=== PATIENT | female | born 1930 | race American Indian/Alaskan Native ===

== ENCOUNTER 2017-01-07 13:19 | Inpatient (IN) | payer MEDICARE ==
--- NOTE | 2017-01-07 14:09 | Emergency Department Report ---
HPI - General Chief Complaint: Seizure Time Seen by Provider: 01/07/17 14:03 - HPI HPI: This is an 86-year-old Afro-[place]uvian female presents to the emergency department by EMS after the patient had 2 different seizures. The patient's car had broken down and bystanders were helping to push the car out of the way when she had a seizure witnessed by these bystanders. EMS was called and the patient had another seizure witnessed by [facility]. She received 2 mg of Ativan for the second seizure. Patient is currently awake but still has some confusion. She is a poor historian. She is more concerned about her car then answering the questions and keeps saying that she wants to drive her car home. She has a past medical history listed of hypertension, GERD, hyperlipidemia. Patient currently is in atrial fibrillation but unknown if there is a previous history of this. ED Past Medical Hx - Past Medical History Previous Medical History?: Yes Hx Hypertension: Yes Hx Seizures: Yes Additional medical history: ACID REFLUX/ INCREAS CHOLESTROL - Surgical History Additional Surgical History: UNKNOWN - Social History Smoking Status: Never Smoker Substance Use Type: None - Medications Home Medications: Home Medications Medication Instructions Recorded Confirmed Last Taken Type Amlodipine Besylate [Norvasc] 10 mg PO DAILY 01/07/17 01/07/17 Unknown History Donepezil [Aricept] 5 mg PO QDAY 01/07/17 01/07/17 Unknown History Furosemide [Lasix] 20 mg PO QDAY PRN 01/07/17 01/07/17 Unknown History Omeprazole 20 mg PO BID 01/07/17 01/07/17 Unknown History Simvastatin 10 mg PO QHS 01/07/17 01/07/17 Unknown History levETIRAcetam [Keppra TAB] 500 mg PO BID 01/07/17 01/07/17 Unknown History traZODone [Desyrel] 1 - 2 tab PO QHS 01/07/17 01/07/17 Unknown History ED Review of Systems ROS: Stated complaint: SEIZURE Other details as noted in HPI Comment: Unobtainable due to pts medical conditions Physical Exam - Physical Exam Vital Signs: Vital Signs 01/07/17 01/07/17 01/07/17 13:17 13:20 13:30 Temperature Pulse Rate 85 80 Respiratory 17 23 Rate Blood Pressure 93/62 O2 Sat by Pulse 98 98 97 Oximetry 01/07/17 01/07/17 13:31 13:40 Temperature 98 F Pulse Rate 86 78 Respiratory 16 19 Rate Blood Pressure 88/72 93/62 O2 Sat by Pulse 97 97 Oximetry Physical Exam: GENERAL: The patient is well-developed well-nourished. HEENT: Normocephalic. Atraumatic. Extraocular motions are intact. Patient has moist mucous membranes. Pupils equal reactive to light bilaterally. No nystagmus. NECK: Supple. Trachea is mid line. CHEST/LUNGS: Clear to auscultation. There is no respiratory distress noted. HEART/CARDIOVASCULAR: Irregularly irregular with mild tachycardia. ABDOMEN: Abdomen is soft, nontender. Patient has normal bowel sounds. There is no abdominal distention. SKIN: Skin is warm and dry. NEURO: The patient is awake, alert. AAO [address] but not time. The patient is cooperative. The patient has no focal neurologic deficits. The patient has normal speech. MUSCULOSKELETAL: There is no tenderness or deformity. There is no limitation range of motion. There is no evidence of acute injury. ED Course Vital Signs 01/07/17 01/07/17 01/07/17 13:17 13:20 13:30 Temperature Pulse Rate 85 80 Respiratory 17 23 Rate Blood Pressure 93/62 O2 Sat by Pulse 98 98 97 Oximetry 01/07/17 01/07/17 13:31 13:40 Temperature 98 F Pulse Rate 86 78 Respiratory 16 19 Rate Blood Pressure 88/72 93/62 O2 Sat by Pulse 97 97 Oximetry ED Medical Decision Making - Lab Data Result diagrams: 01/07/17 14:28 01/07/17 14:28 - EKG Data -: EKG Interpreted by Hi - EKG Data When compared to previous EKG there are: previous EKG unavailable Interpretation: other (atrial fibrillation, left axis deviation, left anterior fascicular block, LVH, Q waves to the anterior leads) - Radiology Data Radiology results: report reviewed No acute intracranial process. Normal aging senescent changes. - Medical Decision Making 86-year-old female presents to the emergency department after she had 2 witnessed seizures. Patient presents in atrial fibrillation with mild RVR. CT of the head did not show any bleed, shift, mass or any acute process. Labs are mostly unremarkable and do not show any etiology of the patient's symptoms. However it appears that the patient left her home in [place] the intent on doing some type of shopping and ended up with her car breaking down here in [place]. There is no medication or previous history that is known of atrial fibrillation. Patient's heart rate is relatively well controlled and she has not yet required any Cardizem. However the patient does not want to remain in the hospital but also displays signs of her dementia and with her to seizures and new onset A. fib she does not appear safe for discharge home to her own accord. The patient required some Ativan and Haldol at different times in order to help her calm down and be compliant with her workup and admission. Able to get in touch with a family member and let them know of her presentation and admission to [facility]. - Differential Diagnosis Epilepsy, SAH, Hypoglycemia, ID Critical Care Time: No Critical care attestation.: If time is entered above; I have spent that time in minutes in the direct care of this critically ill patient, excluding procedure time. ED Disposition Clinical Impression: Atrial fibrillation with rapid ventricular response, Seizures ARF (acute renal failure) Qualifiers: Acute renal failure type: unspecified Qualified Code(s): N17.9 - Acute kidney failure, unspecified Disposition: DC-09 OP ADMIT IP TO THIS HOSP Is pt being admited?: Yes Condition: Fair Time of Disposition: 17:52
--- NOTE | 2017-01-07 14:40 | Cat Scan Report ---
Cranial CT without contrast. History: Seizure, altered mental status. Findings: There is no evidence of acute hemorrhage or infarct. The posterior fossa is normal. Senescent changes consistent with age are present. There are no masses or extra-axial collections. There is no evidence of hyperdense MCA sign. The calvarium is intact. Impression: No acute findings. Age-appropriate senescent changes.
[2017-01-07] MEDS ORDERED: ATIVAN ONE (14:55)
[2017-01-07] MEDS ORDERED: ATIVAN IV ONE (15:01)
[2017-01-07 15:05] LABS: Basophils % (Auto) 0.9 % (0.0-1.8); Eosinophils % (Auto) 2.4 % (0.0-4.3); Hematocrit 42.8 % (30.3-42.9); Hemoglobin 14.1 gm/dl (10.1-14.3); Mean Corpuscular HGB Conc 33 % (30-34); Mean Corpuscular Hemoglobin 31 pg (28-32); Mean Corpuscular Volume 95 fl (79-97); Platelet Count 226 K/mm3 (140-440); Red Blood Count 4.51 M/mm3 (3.65-5.03); Red Cell Distribution Width 13.6 % (13.2-15.2); White Blood Count 4.6 K/mm3 (4.5-11.0)
[2017-01-07] MEDS ORDERED: NACL 0.9% 500 ML 500 ML IV ONE (15:05)
[2017-01-07 15:13] LABS: Albumin 4.2 g/dL (3.9-5); Albumin/Globulin Ratio 1.4 %; BUN/Creatinine Ratio 18.57; Bilirubin,Total 0.4 mg/dL (0.1-1.2); Calcium 9.8 mg/dL (8.4-10.2); Chloride 99.3 mmol/L (98-107); INR 1.07 (0.87-1.13); Potassium 3.6 mmol/L (3.6-5.0); Total Protein 7.3 g/dL (6.3-8.2)
[2017-01-07 15:14] LABS: Partial Thromboplastin Time 30.6 Sec. (24.2-36.6)
[2017-01-07] MEDS ORDERED: HALDOL ONE (15:37)
[2017-01-07] MEDS ORDERED: LOVENOX SUB-Q ONE (15:49)
[2017-01-07] MEDS ORDERED: HALDOL IV ONE (15:51)
--- NOTE | 2017-01-07 15:54 | Admit Criteria Form ---
Admission Criteria Documentation: ATRIAL FIBRILLATION Clinical Indications for Admission to Inpatient Care (Place 'X' for any and all applicable criteria): Admission indicated for ANY ONE of the following(1)(2)(3)(4)(5) : [ ]I. Myocardial ischemia [ ]II. Dyspnea or hypoxemia [ ]III. Hemodynamic instability [ ]IV. Heart failure (e.g., pulmonary edema) (7) [X ]V. New-onset (less than 48 hours) atrial fibrillation with high risk for causing complications secondary to comorbidities (eg, symptomatic heart failure ) [ ]. Altered mental status [ ]VII. Syncope [ ]VIII. Patient has implantable cardioverter defibrillator that has fired more than once within past 24hr or needs immediate adjustment of settings that cannot be done other than in inpatient setting. (8) [ ]IX. Suspected accessory pathway (e.g., [id number] syndrome) on ECG [ ]X. Recent systemic thromboembolism (eg, stroke) [ ]XI. Medication toxicity (e.g., digitalis) causing arrhythmia(9) [ ]XII. Underlying medical condition that necessitates inpatient care (e.g., thyrotoxicosis, pneumonia) (10) [ ]XIII. Continuous ECG monitoring is required for condition causing arrhythmia (e.g., severe hyperkalemia, hypokalemia, acid-base disturbance).(11)(12)(13) [ ]XIV. Initiation of antiarrhythmic drug therapy is needed in patient at high risk of adverse effects as indicated by ANY ONE of the following: [ ]a) Significant structural heart disease (e.g., reduced ejection fraction, congenital heart disease, valvular heart disease) [ ]b) Prolonged QT interval [ ]c) Underlying sinus node or atrioventricular conduction disturbances [ ]d) Need for treatment with antiarrhythmic drugs that have significant proarrhythmic potential (e.g., dofetilide, sotalol, procainamide) [ ]e) Patient whose sinus rhythm has never been observed on ECG [ ]XV. Intolerable symptoms despite optimal outpatient treatment [ ]XVI. Elective or urgent cardioversion that cannot be performed on outpatient basis or during observation care. [A] (Use also Atrial Fibrillation: Observation Care ) as appropriate.(14) [ ]XVII.Contraindications and/or Inappropriate clinical situations for Observational Care in patients with Atrial Fibrillation, when ANY ONE of the following is required: [ ]a) Patient with High risk of cardiac embolism (e.g, patients with previous cardiac embolism, LVEF < 40%, age >75 and patients with prosthetic valve) 18 [ ]b) Patient with Moderate risk including DM patient, CAD and patient aged 65-75 18 [ ]c) Patient with any change in cardiac biomarker especially troponin should be managed as high risk in an inpatient setting 19 [ ]d) Physician judgement irrespective of ECG and other diagnostic findings 20 [X ]XVIII.General contraindications and/or Inappropriate clinical situations for Observational Care in patients with Atrial Fibrillation, when ANY ONE of the following is required: [X ]a) Prediction of prolongation of LOS based on ANY ONE of the following may be considered as a contraindication for observational care 2, 3, 4, 5, 6, 7, 8, 9, 10, 11 [ X]i) Age > 65 yrs. [ ]ii) Patient arriving by ambulance [ ]iii) Patient with high acuity [ ]iv) Patient requiring vital sign monitoring [ ]v) Patient on IV medication [ ]b) Systolic blood pressures 180mmHg 3,12 [ ]c) Patient with altered mental status including delirium and other alteration of consciousness3 [ ]d) Patient whose discharge disposition will be to a group home home or rehabilitation home should not be managed in Emergency Department Observation Unit. CMS rule requires 3 days hospital stay before such placement.3,13 [ ]e) Patient with failure to thrive due to broad array of etiologies 3,16,17 [ ]f) Inability to ambulate 3,14 Extended stay beyond goal length of stay may be needed for (1)(25)(26): [ ]a) Unstable comorbidities [ ]b) Persistently uncontrolled atrial fibrillation or other arrhythmias [ ]c) Acute thromboembolic event (e.g., stroke, limb ischemia) [ ]d) Need for inpatient attainment of full anticoagulation The original [employer] content created by [employer] has been revised. The portions of the content which have been revised are identified through the use of italic text or in bold, and [facility] has neither reviewed nor approved the modified material. All other unmodified content is copyright [facility]. Please see references footnoted in the original [facility] edition 2016 Admission Criteria Met: Yes
[2017-01-07] MEDS ORDERED: KEPPRA 1,000 MG/NS 0.75% 100ML 1,000 MG/100 ML BAG IV ONE (15:56)
--- NOTE | 2017-01-07 16:02 | History and Physical Report ---
History of Present Illness Chief complaint: i had a seizure History of present illness: 86 YO Female with Seizure Disorder, HTN, GERD, HLD, Severe Malnutrition presents to ED for evaluation. Pt confused and unable to provide detailed history. Pt states that she lives in [place] and "went up the road to [place] to get some snap peas". Pt is unaware that she is in [place]. Pt history taken from EMS, ED staff. EMS called by richa sutherland who assisted the patient after her vehicle broke down. The bystanders were helping to push the car out of the roadway when the patient had a seizure witnessed by these bystanders. EMS was called and the patient had another seizure witnessed by [facility]. Pt transported to [facility] for evaluation. Pt seen and evaluated in ED and found to have new onset Atrial Fib, and Encephalopathy. Past History Past Medical History: GERD, hypertension, hyperlipidemia, seizures, other ( Dementia) Past Surgical History: No surgical history, Other (reviewed) Social history: no significant social history, other (UTO) Family history: no significant family history (UTO) Medications and Allergies Allergies Allergy/AdvReac Type Severity Reaction Status Date / Time No Known Allergies Allergy Unverified 01/07/17 13:30 Home Medications Medication Instructions Recorded Confirmed Last Taken Type Amlodipine Besylate [Norvasc] 10 mg PO DAILY 01/07/17 01/07/17 Unknown History Donepezil [Aricept] 5 mg PO QDAY 01/07/17 01/07/17 Unknown History Furosemide [Lasix] 20 mg PO QDAY PRN 01/07/17 01/07/17 Unknown History Omeprazole 20 mg PO BID 01/07/17 01/07/17 Unknown History Simvastatin 10 mg PO QHS 01/07/17 01/07/17 Unknown History levETIRAcetam [Keppra TAB] 500 mg PO BID 01/07/17 01/07/17 Unknown History traZODone [Desyrel] 1 - 2 tab PO QHS 01/07/17 01/07/17 Unknown History Active Meds: Active Medications Levetiracetam (Keppra 1,000 Mg/Ns 0.75% 100ml) 1,000 mg in 100 mls @ 400 mls/ hr IV ONCE ONE Stop: 01/07/17 16:10 Review of Systems ROS unobtainable: due to mental status Exam - Constitutional Vitals: Temp Pulse Resp BP Pulse Ox 98 F 80 16 96/69 95 01/07/17 13:31 01/07/17 14:00 01/07/17 14:00 01/07/17 14:00 01/07/17 14:00 General appearance: Present: mild distress - EENT Eyes: Present: PERRL ENT: hearing intact, clear oral mucosa - Neck Neck: Present: supple, normal ROM - Respiratory Respiratory: bilateral: diminished - Cardiovascular Rhythm: irregularly irregular - Extremities Extremities: pulses symmetrical, No edema Peripheral Pulses: within normal limits - Abdominal General gastrointestinal: Present: soft, non-tender, non-distended, normal bowel sounds Female genitourinary: Present: normal - Integumentary Integumentary: Present: clear, dry, decreased turgor - Musculoskeletal Musculoskeletal: generalized weakness - Psychiatric Psychiatric: no intact judgment & insight, no memory intact - Neurologic Neurologic: moves all extremities, no gait normal Results - Labs CBC & Chem 7: 01/07/17 14:28 01/07/17 14:28 Labs: Abnormal lab results 01/07/17 01/07/17 01/07/17 Range/Units 14:28 14:28 14:28 [place] % (Auto) 13.0 H (0.0-7.3) % BUN 26 H (7-17) mg/dL Creatinine 1.4 H (0.7-1.2) mg/dL Glucose 123 H (65-100) mg/dL Salicylates < 0.3 L (2.8-20.0) mg/dL Assessment and Plan - Patient Problems (1) Atrial fibrillation with rapid ventricular response Current Visit: Yes Status: Acute Plan to address problem: Cardiology consulted: Admit to remote telemetry, thyroid panel, echo, IVF. Pt heart rate normalized. Chads 2 Vasc Score: 2 (2) Status epilepticus Current Visit: Yes Status: Acute Plan to address problem: Supportive care, keppra, keppra level (3) ARF (acute renal failure) Current Visit: Yes Status: Acute Qualifiers: Acute renal failure type: A Plan to address problem: IVF replacement, monitor uop q shift, urine electrolytes in AM if creatnine elevated, or decreasing uop (4) Encephalopathy Current Visit: Yes Status: Acute Plan to address problem: CT head, IVF, supportive care, (5) HTN (hypertension) Current Visit: Yes Status: Acute Qualifiers: Hypertension type: H Plan to address problem: Pt currently hypotensive, hold antihypertensive medication. (6) DVT prophylaxis Current Visit: Yes Status: Acute
[2017-01-07] MEDS ORDERED: TYLENOL PO PRN (16:09)
[2017-01-07] MEDS ORDERED: PROVENTIL IH PRN (16:09)
[2017-01-07] MEDS: ASPIRIN PO SCH ×2 (17:25→17:47)
[2017-01-07] MEDS ORDERED: NACL 0.45% 500 ML IV SCH (18:00)
[2017-01-07 18:18] LABS: Bilirubin,Urine NEG (Negative); Blood,Urine NEG (Negative); Ketones,Urine NEG (Negative); Leukocyte Esterase,Urine LG (Negative); Mucus,Urine FEW /HPF; Nitrite,Urine NEG (Negative); Protein,Urine <15 mg/dL mg/dL (Negative); Urobilinogen,Urine < 2.0 mg/dL (<2.0)
--- NOTE | 2017-01-08 08:54 | Progress Note ---
Assessment and Plan Assessment and plan: Atrial fibrillation with rapid ventricular response Patient, currently sinus bradycardia, Echocardiogram ordered IV fluid hydration Cardiology consulted Encephalopathy Resolved Normal CT of the head. Most likely secondary to postictal state Status epilepticus Started on Keppra Frequent neuro assessment. Supportive care. Urinary tract infection Started on empiric antibiotic treatment Rocephin IV fluid hydration ARF (acute renal failure) Most likely from dehydration Serum creatinine improved with IV fluid IV fluid hydration Closely monitor CMP HTN (hypertension) We will resume home antihypertensive medication DVT prophylaxis Lovenox. History Interval history: Patient alert and oriented to person, place and time. Patient stated she want to be discharge now because her family are on the way from [place] and she wants to go back to [place] with them. She denies chest, pain, palpitation and shortness of breath. Hospitalist Physical - Constitutional Vitals: Temp Pulse Resp BP Pulse Ox 97.9 F 63 18 95/63 96 01/07/17 21:14 01/07/17 21:14 01/07/17 21:14 01/07/17 21:14 01/08/17 08:26 General appearance: Present: mild distress - EENT Eyes: Present: PERRL ENT: hearing intact - Neck Neck: Present: supple - Respiratory Respiratory effort: normal Respiratory: bilateral: diminished - Cardiovascular Rhythm: irregularly irregular Heart Sounds: Present: S1 & S2 - Extremities Extremities: no ischemia Peripheral Pulses: within normal limits - Abdominal General gastrointestinal: soft, non-tender - Integumentary Integumentary: Present: clear, warm, dry - Psychiatric Psychiatric: appropriate mood/affect - Neurologic Neurologic: CNII-XII intact, moves all extremities - Allied Health Allied health notes reviewed: nursing Results - Labs CBC & Chem 7: 01/07/17 14:28 01/08/17 12:13 Labs: Laboratory Last Values WBC 4.6 K/mm3 (4.5-11.0) 01/07/17 14:28 RBC 4.51 M/mm3 (3.65-5.03) 01/07/17 14:28 Hgb 14.1 gm/dl (10.1-14.3) 01/07/17 14:28 Hct 42.8 % (30.3-42.9) 01/07/17 14:28 MCV 95 fl (79-97) 01/07/17 14:28 MCH 31 pg (28-32) 01/07/17 14:28 MCHC 33 % (30-34) 01/07/17 14:28 RDW 13.6 % (13.2-15.2) 01/07/17 14:28 Plt Count 226 K/mm3 (140-440) 01/07/17 14:28 Lymph % (Auto) 30.6 % (13.4-35.0) 01/07/17 14:28 [place] % (Auto) 13.0 % (0.0-7.3) H 01/07/17 14:28 Eos % (Auto) 2.4 % (0.0-4.3) 01/07/17 14:28 Baso % (Auto) 0.9 % (0.0-1.8) 01/07/17 14:28 Lymph # 1.4 K/mm3 (1.2-5.4) 01/07/17 14:28 [place] # 0.6 K/mm3 (0.0-0.8) 01/07/17 14:28 Eos # 0.1 K/mm3 (0.0-0.4) 01/07/17 14:28 Baso # 0.0 K/mm3 (0.0-0.1) 01/07/17 14:28 Seg Neutrophils % 53.1 % (40.0-70.0) 01/07/17 14:28 Seg Neutrophils # 2.4 K/mm3 (1.8-7.7) 01/07/17 14:28 PT 13.8 Sec. (12.2-14.9) 01/07/17 14:28 INR 1.07 (0.87-1.13) 01/07/17 14:28 APTT 30.6 Sec. (24.2-36.6) 01/07/17 14:28 Sodium 141 mmol/L (137-145) 01/07/17 14:28 Potassium 3.6 mmol/L (3.6-5.0) 01/07/17 14:28 Chloride 99.3 mmol/L (98-107) 01/07/17 14:28 Carbon Dioxide 26 mmol/L (22-30) 01/07/17 14:28 Anion Gap 19 mmol/L 01/07/17 14:28 BUN 26 mg/dL (7-17) H 01/07/17 14:28 Creatinine 1.4 mg/dL (0.7-1.2) H 01/07/17 14:28 Estimated GFR 43 ml/min 01/07/17 14:28 BUN/Creatinine Ratio 18.57 % 01/07/17 14:28 Glucose 123 mg/dL (65-100) H 01/07/17 14:28 POC Glucose 111 (70-105) H 01/07/17 21:39 Calcium 9.8 mg/dL (8.4-10.2) 01/07/17 14:28 Total Bilirubin 0.40 mg/dL (0.1-1.2) 01/07/17 14:28 AST 23 units/L (5-40) 01/07/17 14:28 ALT 21 units/L (7-56) 01/07/17 14:28 Alkaline Phosphatase 61 units/L (35-129) 01/07/17 14:28 Troponin T 0.016 ng/mL (0.00-0.029) 01/07/17 14:28 Total Protein 7.3 g/dL (6.3-8.2) 01/07/17 14:28 Albumin 4.2 g/dL (3.9-5) 01/07/17 14:28 Albumin/Globulin Ratio 1.4 % 01/07/17 14:28 TSH 1.750 mlU/mL (0.270-4.200) 01/07/17 14:28 Free T4 1.47 ng/dL (0.76-1.46) H 01/07/17 14:28 Urine Color Yellow (Yellow) 01/07/17 17:30 Urine Turbidity Clear (Clear) 01/07/17 17:30 Urine pH 5.0 (5.0-7.0) 01/07/17 17:30 Ur Specific [place] 1.018 (1.003-1.030) 01/07/17 17:30 Urine Protein <15 mg/dl mg/dL (Negative) 01/07/17 17:30 Urine Glucose (UA) Neg mg/dL (Negative) 01/07/17 17:30 Urine Ketones Neg mg/dL (Negative) 01/07/17 17:30 Urine Blood Neg (Negative) 01/07/17 17:30 Urine Nitrite Neg (Negative) 01/07/17 17:30 Urine Bilirubin Neg (Negative) 01/07/17 17:30 Urine Urobilinogen < 2.0 mg/dL (<2.0) 01/07/17 17:30 Ur Leukocyte Esterase Lg (Negative) 01/07/17 17:30 Urine WBC (Auto) 10.0 /HPF (0.0-6.0) H 01/07/17 17:30 Urine RBC (Auto) 2.0 /HPF (0.0-6.0) 01/07/17 17:30 U Epithel Cells (Auto) 1.0 /HPF (0-13.0) 01/07/17 17:30 Hyaline Casts 1 /LPF 01/07/17 17:30 Urine Mucus Few /HPF 01/07/17 17:30 Salicylates < 0.3 mg/dL (2.8-20.0) L 01/07/17 14:28 Acetaminophen < 15.0 ug/mL (10.0-30.0) 01/07/17 14:28 Plasma/Serum Alcohol < 0.01 gm% (0-0.07) 01/07/17 14:28
[2017-01-08] MEDS ORDERED: NORVASC PO SCH (10:00)
[2017-01-08] MEDS ORDERED: NON-FORMULARY (Omeprazole [Omeprazole] 20 MG) PO SCH (10:00)
[2017-01-08] MEDS ORDERED: PROTONIX PO SCH (10:00)
[2017-01-08] MEDS ORDERED: LASIX PO PRN (10:00)
[2017-01-08] MEDS ORDERED: NON-FORMULARY (Amlodipine Besylate [Norvasc] 10 MG) PO SCH (10:00)
[2017-01-08] MEDS ORDERED: ROCEPHIN/NS 1 GM/50 ML 1 GM/50 ML BAG IV SCH (10:00)
[2017-01-08] MEDS ORDERED: KEPPRA PO SCH (10:00)
[2017-01-08] MEDS ORDERED: ARICEPT PO SCH (10:00)
[2017-01-08] MEDS: ASPIRIN PO SCH (10:21)
[2017-01-08 10:24] VITALS: BP 131/74
--- NOTE | 2017-01-08 11:44 | Discharge Summary ---
<ANITA FIGUEROA - Last Filed: 01/08/17 14:53> Providers - Providers Date of Admission: 01/07/17 16:09 Date of discharge: 01/08/17 Attending physician: SABA ROBERTS MD 01/07/17 16:12 Consult to Physician [CONS] Routine Consulting Provider: LI HENNESSY Reason For Exam: a fib Place consult to:: cardiology Notified:: Y Was contact made?: Yes If yes, spoke with:: OFFICE Time called:: 16:45 Primary care physician: FREIGHT DISPATCHER Hospitalization Condition: Stable Hospital course: Patient is a 86 years old A Female with Seizure Disorder, HTN, GERD, HLD , Severe Malnutrition presents to ED for evaluation. Pt confused and unable to provide detailed history. Pt states that she lives in [place] and "went up the road to [place] to get some snap peas". Pt is unaware that she is in [place]. Patient was diagnosed, altered of fibrillation, encephalopathy, urinary tract infection, acute renal failure and hypertension. Normal CT of the head, CXR was wnl. Patient irregular heart probably secondary to seizure and dehydration. Patient currently sinus bradycardia with HR of 54.She was treated with supplemental oxygen, IV fluid, anticonvulsants, antihypertensive, IV antibiotics. Patient completed a full course of antibiotic. She is being discharged on oral antibiotic. Patient mental status improved currently alert oriented to person, place and time. Patient was cleared by diesel pile hammer operator. Patient clinically improved and stable for discharge. Patient was advised to not drive unless she is cleared by Neurologist. Patient was advised to follow up with her primary care, cardiology and Neurologist. Diagnosis: Atrial fibrillation with rapid ventricular response Encephalopathy Status epilepticus Urinary tract infection ARF (acute renal failure) HTN (hypertension) Disposition: DC-01 TO HOME OR SELFCARE Time spent for discharge: 33 minutes Core Measure Documentation - Palliative Care Palliative Care/ Comfort Measures: Not Applicable - Core Measures Any of the following diagnoses?: none Exam - Constitutional Vitals: Temp Pulse Resp BP Pulse Ox 97.9 F 54 L 18 131/74 96 01/07/17 21:14 01/08/17 10:22 01/07/17 21:14 01/08/17 10:22 01/08/17 08:26 General appearance: Present: no acute distress - EENT Eyes: Present: PERRL ENT: hearing intact - Neck Neck: Present: supple - Respiratory Respiratory effort: normal Respiratory: bilateral: diminished - Cardiovascular Rhythm: regular Heart Sounds: Present: S1 & S2 - Extremities Extremities: no ischemia Peripheral Pulses: within normal limits - Abdominal General gastrointestinal: Present: soft, non-tender Female genitourinary: Present: deferred - Rectal Rectal Exam: deferred - Integumentary Integumentary: Present: clear, warm, dry - Musculoskeletal Musculoskeletal: strength equal bilaterally - Psychiatric Psychiatric: appropriate mood/affect - Neurologic Neurologic: CNII-XII intact - Allied Health Allied health notes reviewed: nursing Plan Activity: advance as tolerated Follow up with: PRIMARY CAREMD [Primary Care Provider] - 3-5 Days Prescriptions: Cephalexin [Keflex] 500 mg PO Q12HR #10 cap levETIRAcetam [Keppra TAB] 500 mg PO BID #30 tablet <SABA ROBERTS - Last Filed: 01/08/17 19:05> Providers - Providers Date of Admission: 01/07/17 16:09 Attending physician: SABA ROBERTS MD 01/07/17 16:12 Consult to Physician [CONS] Routine Consulting Provider: LI HENNESSY Reason For Exam: a fib Place consult to:: cardiology Notified:: Y Was contact made?: Yes If yes, spoke with:: OFFICE Time called:: 16:45 01/08/17 12:02 Consult to Physician [CONS] Routine Consulting Provider: MARISELA RESENDEZ Reason For Exam: seizure Place consult to:: Notified:: Phone number called:: [phone] Was contact made?: Yes If yes, spoke with:: JAMIA Time called:: 12:58 Primary care physician: FREIGHT DISPATCHER Hospitalization Reason for admission: seizure Hospital course: I saw and evaluated the patient. I agree with the findings and the plan of care as documented in the Nurse Practitioner's~note, with the following corrections and additions. Discussed with cardiology, AFIB terminated, recommended outpatient follow up With primary diesel pile hammer operator. family notifed. No driving until cleared by Neurologist outpatient. Exam - Constitutional Vitals: Temp Pulse Resp BP Pulse Ox 97.9 F 54 L 18 131/74 96 01/07/17 21:14 01/08/17 10:22 01/07/17 21:14 01/08/17 10:22 01/08/17 08:26 Plan Activity: advance as tolerated, fall precautions, other (No driving until cleared by NEUROLOGIST ) Diet: low fat Special Instructions: record daily BP diary Additional Instructions: MUST FOLLOW WITH PRIMARY CARDIOLOGY AND NEUROLOGY
[2017-01-08 12:44] LABS: Alanine Aminotransferase 18 units/L (7-56); Albumin 3.7 g/dL (3.9-5); Albumin/Globulin Ratio 1.3 %; Alkaline Phosphatase 59 units/L (35-129); Anion Gap 18 mmol/L; Blood Urea Nitrogen 21 mg/dL (7-17); Calcium 9.1 mg/dL (8.4-10.2); Carbon Dioxide 25 mmol/L (22-30); Chloride 104.6 mmol/L (98-107); Glucose 100 mg/dL (65-100); Potassium 4.2 mmol/L (3.6-5.0); Sodium 143 mmol/L (137-145); Total Protein 6.5 g/dL (6.3-8.2)
--- NOTE | 2017-01-08 15:33 | Consultation ---
History of Present Illness - Reason for Consult Consult date: 01/08/17 seizure patient is cleared for discharge and seizure control, is good CTy Past History Past Medical History: GERD, hypertension, hyperlipidemia, seizures, other ( Dementia) Past Surgical History: No surgical history, Other (reviewed) Social history: no significant social history, other (UTO) Family history: no significant family history (UTO) Medications and Allergies Allergies Allergy/AdvReac Type Severity Reaction Status Date / Time No Known Allergies Allergy Unverified 01/07/17 13:30 Home Medications Medication Instructions Recorded Confirmed Last Taken Type Donepezil [Aricept] 5 mg PO QDAY 01/07/17 01/07/17 Unknown History Furosemide [Lasix TAB] 20 mg PO QDAY PRN 01/07/17 01/07/17 Unknown History Omeprazole 20 mg PO BID 01/07/17 01/07/17 Unknown History Simvastatin 10 mg PO QHS 01/07/17 01/07/17 Unknown History traZODone [Desyrel] 1 - 2 tab PO QHS 01/07/17 01/07/17 Unknown History Aspirin [Aspirin TAB] 325 mg PO QDAY tablet 01/08/17 Unknown Rx Cephalexin [Keflex] 500 mg PO Q12HR #10 cap 01/08/17 Unknown Rx Pantoprazole [Protonix TAB] 20 mg PO BID tablet. 01/08/17 Unknown Rx Simvastatin [Zocor TAB] 10 mg PO QHS tablet 01/08/17 Unknown Rx amLODIPine [Norvasc] 10 mg PO DAILY tablet 01/08/17 Unknown Rx levETIRAcetam [Keppra TAB] 500 mg PO BID #30 tablet 01/08/17 Unknown Rx Active Meds: Active Medications Acetaminophen (Tylenol) 650 mg PO Q4H PRN PRN Reason: Pain MILD(1-3)/Fever >100.5/[place] Albuterol (Proventil) 2.5 mg IH Q4HRT PRN PRN Reason: Shortness Of Breath Amlodipine Besylate (Norvasc) 10 mg PO DAILY [facility] Last Admin: 01/08/17 10:22 Dose: 10 mg Aspirin (Aspirin) 325 mg PO QDAY [facility] Last Admin: 01/08/17 10:21 Dose: 325 mg Donepezil HCl (Aricept) 5 mg PO QDAY [facility] Last Admin: 01/08/17 10:22 Dose: 5 mg Furosemide (Lasix) 20 mg PO QDAY PRN PRN Reason: Edema Sodium Chloride (Nacl 0.45%) 500 mls @ 50 mls/hr IV DIRECT [facility] Last Admin: 01/07/17 18:27 Dose: 50 mls/hr Ceftriaxone Sodium (Rocephin/Ns 1 Gm/50 Ml) 1 gm in 50 mls @ 100 mls/hr IV Q24HR [facility] PRN Reason: Protocol Last Admin: 01/08/17 10:23 Dose: 100 mls/hr Levetiracetam (Keppra) 500 mg PO BID [facility] Last Admin: 01/08/17 10:21 Dose: 500 mg Pantoprazole Sodium (Protonix) 20 mg PO BID [facility] Last Admin: 01/08/17 10:22 Dose: 20 mg Simvastatin (Zocor) 10 mg PO QHS [facility] Exam - Constitutional Vitals: Temp Pulse Resp BP Pulse Ox 97.9 F 54 L 18 131/74 96 01/07/17 21:14 01/08/17 10:22 01/07/17 21:14 01/08/17 10:22 01/08/17 08:26 Results - Labs CBC & Chem 7: 01/07/17 14:28 01/08/17 12:13 Labs: Abnormal lab results 01/07/17 01/07/17 01/08/17 Range/Units 17:30 21:39 12:13 BUN 21 H (7-17) mg/dL POC Glucose 111 H (70-105) Albumin 3.7 L (3.9-5) g/dL Urine WBC (Auto) 10.0 H (0.0-6.0) /HPF
--- NOTE | 2017-01-08 15:34 | Consultation ---
Past History Past Medical History: GERD, hypertension, hyperlipidemia, seizures, other ( Dementia) Past Surgical History: No surgical history, Other (reviewed) Social history: no significant social history, other (UTO) Family history: no significant family history (UTO) Medications and Allergies Allergies Allergy/AdvReac Type Severity Reaction Status Date / Time No Known Allergies Allergy Unverified 01/07/17 13:30 Home Medications Medication Instructions Recorded Confirmed Last Taken Type Donepezil [Aricept] 5 mg PO QDAY 01/07/17 01/07/17 Unknown History Furosemide [Lasix TAB] 20 mg PO QDAY PRN 01/07/17 01/07/17 Unknown History Omeprazole 20 mg PO BID 01/07/17 01/07/17 Unknown History Simvastatin 10 mg PO QHS 01/07/17 01/07/17 Unknown History traZODone [Desyrel] 1 - 2 tab PO QHS 01/07/17 01/07/17 Unknown History Aspirin [Aspirin TAB] 325 mg PO QDAY tablet 01/08/17 Unknown Rx Cephalexin [Keflex] 500 mg PO Q12HR #10 cap 01/08/17 Unknown Rx Pantoprazole [Protonix TAB] 20 mg PO BID tablet. 01/08/17 Unknown Rx Simvastatin [Zocor TAB] 10 mg PO QHS tablet 01/08/17 Unknown Rx amLODIPine [Norvasc] 10 mg PO DAILY tablet 01/08/17 Unknown Rx levETIRAcetam [Keppra TAB] 500 mg PO BID #30 tablet 01/08/17 Unknown Rx Active Meds: Active Medications Acetaminophen (Tylenol) 650 mg PO Q4H PRN PRN Reason: Pain MILD(1-3)/Fever >100.5/[place] Albuterol (Proventil) 2.5 mg IH Q4HRT PRN PRN Reason: Shortness Of Breath Amlodipine Besylate (Norvasc) 10 mg PO DAILY [facility] Last Admin: 01/08/17 10:22 Dose: 10 mg Aspirin (Aspirin) 325 mg PO QDAY [facility] Last Admin: 01/08/17 10:21 Dose: 325 mg Donepezil HCl (Aricept) 5 mg PO QDAY [facility] Last Admin: 01/08/17 10:22 Dose: 5 mg Furosemide (Lasix) 20 mg PO QDAY PRN PRN Reason: Edema Sodium Chloride (Nacl 0.45%) 500 mls @ 50 mls/hr IV DIRECT [facility] Last Admin: 01/07/17 18:27 Dose: 50 mls/hr Ceftriaxone Sodium (Rocephin/Ns 1 Gm/50 Ml) 1 gm in 50 mls @ 100 mls/hr IV Q24HR [facility] PRN Reason: Protocol Last Admin: 01/08/17 10:23 Dose: 100 mls/hr Levetiracetam (Keppra) 500 mg PO BID [facility] Last Admin: 01/08/17 10:21 Dose: 500 mg Pantoprazole Sodium (Protonix) 20 mg PO BID [facility] Last Admin: 01/08/17 10:22 Dose: 20 mg Simvastatin (Zocor) 10 mg PO QHS [facility] Exam - Constitutional Vitals: Temp Pulse Resp BP Pulse Ox 97.9 F 54 L 18 131/74 96 01/07/17 21:14 01/08/17 10:22 01/07/17 21:14 01/08/17 10:22 01/08/17 08:26 Results - Labs CBC & Chem 7: 01/07/17 14:28 01/08/17 12:13 Labs: Abnormal lab results 01/07/17 01/07/17 01/08/17 Range/Units 17:30 21:39 12:13 BUN 21 H (7-17) mg/dL POC Glucose 111 H (70-105) Albumin 3.7 L (3.9-5) g/dL Urine WBC (Auto) 10.0 H (0.0-6.0) /HPF
[2017-01-08] MEDS ORDERED: ZOCOR PO SCH (22:00)
[2017-01-08] MEDS ORDERED: NON-FORMULARY (Simvastatin 10 MG) PO SCH (22:00)
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
== END 2017-01-08 15:45 | disposition home or self-care (01) | DRG 100 ==
LOC: ED 13:19 → CC2 16:09
PROVIDERS: ADMIT Internal Medicine; ATTEND Internal Medicine
DX: G40.901 Epilepsy, unspecified, not intractable, with status epilepticus (principal); E43 Unspecified severe protein-calorie malnutrition; G93.40 Encephalopathy, unspecified; N17.9 Acute kidney failure, unspecified; N39.0 Urinary tract infection, site not specified; Z68.1 Body mass index [BMI] 19.9 or less, adult; I48.91 Unspecified atrial fibrillation; I10 Essential (primary) hypertension; K21.9 Gastro-esophageal reflux disease without esophagitis; E78.5 Hyperlipidemia, unspecified; F03.90 Unspecified dementia, unspecified severity, without behavioral disturbance, psychotic disturbance, mood disturbance, and anxiety; E86.0 Dehydration; Z90.710 Acquired absence of both cervix and uterus
CPT/HCPCS: 36415; 70450; 80053; 80320; 81001; 82962; 84439; 84443; 84484; 85025; 85610; 85730; 93005; 93010; 94760; 96365; 96375; G0480; J0696; J1630; J1953; J2060; J7040